=== PATIENT | male | born 2000 | race African-American/Black ===

== ENCOUNTER 2023-03-30 10:14 | Emergency (ER) | payer SELFPAY ==
[~2023-03-30] VITALS: Ht 175.3 cm; Wt 70.5 kg
[2023-03-30 10:24] VITALS: BP 122/66; PULSE 70; RESP 16; TEMP 98.3
[2023-03-30] MEDS ORDERED: IBUP-2030 MT (12:06)
== END 2023-03-30 12:27 | disposition home or self-care (01) ==
LOC: ER 10:14
DX: M25.561 Pain in right knee (principal)
CPT/HCPCS: 73562; 99283